=== PATIENT | male | born 1985 | race American Indian/Alaskan Native ===

== ENCOUNTER 2024-06-22 10:52 | Emergency (ER) | payer MEDICAID, SELFPAY ==
[2024-06-22 11:06] VITALS: BP 125/75; PULSE 105; RESP 20; TEMP 36.7; O2SAT 99; BMI 30.4
--- NOTE | 2024-06-22 11:19 | XR_ITS ---
Examination: CT abdomen with intravenous contrast CT pelvis with intravenous contrast 2-D coronal reconstructions 2-D sagittal reconstructions Date and time of exam:June 22, 2024 at 1748 hrs. Comparison May 11, 2024 Indications: Abdominal pain this week, large anterior abdominal wall hernia defect 17 cm on May 11, 2024 examination. CTDI: vol (mGy) 10.6 DLP: (mGycm) 605 Technique: Multiple axial sections of the abdomen and pelvis have been obtained. 64 slice high-resolution scanner used. 3 mm axial sections have been obtained, post intravenous injection 60 cc [id number] 2-D sagittal, coronal reconstructions obtained. Low dose protocols were performed. One or more of the following dose reduction techniques were used; automated exposure control, adjustment of the mA and/or KV according to patient size, use of iterative reconstruction technique. Findings: 4 mm liver cyst Again noted 17 cm upper abdominal hernia defect containing stomach colon and small bowel, no incarcerated bowel, a small portion of the liver is also in this hernia defect Cholelithiasis No pancreatic mass Appendix is not visualized No diverticulitis Urinary bladder intact No prostatomegaly Impression: Unchanged 17 cm upper abdominal wall hernia defect, containing small bowel, colon and stomach, no incarcerated bowel or bowel obstruction Cholelithiasis
--- NOTE | 2024-06-22 11:19 | PD.EDRME ---
Rapid Medical Screening Exam RME Arrival date/time: 06/22/24 10:52 39-year-old male presents emergency department complaint of infection to abdomen Chief Complaint: Abdominal Pain Time Seen by Provider: 06/22/24 11:05 Vital signs: Vital Signs Temperature 98.1 F 06/22/24 11:06 Pulse Rate 105 H 06/22/24 11:06 Respiratory Rate 20 06/22/24 11:06 Blood Pressure 125/75 06/22/24 11:06 Pulse Oximetry (%) 99 06/22/24 11:06 Oxygen Delivery Method Room Air 06/22/24 11:06
[2024-06-22 11:50] LABS: Base Excess, Venous 0 (-3-3); O2 Saturation, Venous 72 % (96-97); PCO2, Venous 28 mmHg (36-56); PO2, Venous 32 mmHg (15-58); pH, Venous 7.51 (7.33-7.66)
[2024-06-22 11:51] LABS: Lactate (Lactic Acid) 1.4 mMol/L (0.4-2.0)
[2024-06-22 12:02] LABS: Basophils # (Auto) 0.1 Thou/mm3 (0.0-0.2); Basophils % (Auto) 1 % (0-2.5); Eosinophils # (Auto) 0.4 Thou/mm3 (0.0-0.5); Eosinophils % (Auto) 3 % (0-10); Hematocrit 47.8 % (41.0-53.0); Immature Granulocytes % (Auto) 1 % (0-0); Immature Granulocytes Auto 0.07 Thou/mm3 (0.00-0.00); Lymphocytes # (Auto) 2.9 Thou/mm3 (1.0-4.8); Lymphocytes % (Auto) 21 % (10-50); Mean Corpuscular HGB Conc 33.5 g/dl (31.0-37.0); Mean Corpuscular Hemoglobin 30.1 pg (25.0-35.0); Mean Corpuscular Volume 90 fL (80-100); Monocytes # (Auto) 1.2 Thou/mm3 (0.0-0.8); Monocytes % (Auto) 9 % (0-12); Neutrophils # (Auto) 8.9 Thou/mm3 (1.8-7.7); Neutrophils % (Auto) 66 % (37-80); Nucleated Red Blood Cell % 0 /100 WBC (0); Platelet Count 272 Thou/mm3 (140-440); RDW Standard Deviation 41.5 fL (35.1-43.9); Red Blood Count 5.32 Miln/mm3 (4.50-5.90); White Blood Count 13.6 Thou/mm3 (3.8-10.6)
[2024-06-22 12:15] LABS: Sed Rate (ESR) 37 mm/hr (0-15)
[2024-06-22 12:30] LABS: Alanine Aminotransferase 43 U/L (10-49); Albumin, Serum 4.7 gm/dL (3.5-5.0); Albumin/Globulin Ratio 1.7 (1.2-2.2); Alkaline Phosphatase 106 U/L (46-116); Anion Gap 5 (7-16); Aspartate Amino Transferase 30 U/L (0-34); BUN/Creatinine Ratio 10 Ratio (12-20); Bilirubin,Total 0.5 mg/dL (0.3-1.2); Blood Urea Nitrogen 9 mg/dL (9-23); C-Reactive Protein 2.9 mg/dL (0.0-0.9); Calcium 9.9 mg/dL (8.3-10.6); Calcium (Corrected) 9.9 mg/dL (8.5-10.1); Chloride 105 mMol/L (98-107); Creatinine (Component) 0.9 mg/dL (0.6-1.3); Estimated Creatinine Clearance 132.1 mL/min (>60); Globulin 2.8 gm/dL (2.3-3.5); Glucose 102 mg/dL (74-106); Osmolality,Calculated 268 (275-295); Potassium 4.3 mMol/L (3.4-5.1); Procalcitonin 0.05 ng/ml (0.0-0.49); Sodium 135 mMol/L (136-145); Total Protein 7.5 gm/dL (5.7-8.2); eGFR > 60 See Note
[2024-06-22 12:32] LABS: Glucose Estimated Average 103 mg/dL (80-131); Hemoglobin A1C 5.2 % Hgb (4.8-6.0)
[2024-06-22 12:51] LABS: Collection Type, Urine Clean Catch
[2024-06-22 13:10] LABS: Bacteria,Urine Rare; Bilirubin,Urine Negative (Negative); Blood,Urine Negative (Negative); Clarity,Urine Clear (Clear/Hazy); Color,Urine Lt-Yellow (Lt Yel-Yel); Culture Indicated,Urine Not Indicated; Glucose, Urine Negative (Negative); Ketones,Urine Negative (Negative); Leukocyte Esterase,Urine Positive (Negative); Nitrite,Urine Negative (Negative); PH,Urine 6.5 (5.0-7.0); Protein,Urine Negative (Neg - Trace); RBC,Urine 3 /hpf (0-3); Specific Gravity,Urine 1.009 (1.001-1.035); Squamous Epithelial Cell,Urine 1 /hpf (0-5); Urobilinogen,Urine Negative mg/dL (0.0-1.0); WBC,Urine 3 /hpf (0-5)
[2024-06-22 13:11] LABS: Amphetamine/Methamp Scrn,U Negative (Negative); Barbiturate Screen,Urine Negative (Negative); Benzodiazepines Screen,Urine Negative (Negative); Benzoylecgonine Screen, Ur Negative (Negative); Fentanyl Screen,Urine Negative (Negative); Opiate Screen,Urine Negative (Negative); THC Screen,Urine Negative (Negative)
[2024-06-22 16:48] VITALS: BP 129/71; PULSE 119; RESP 20; TEMP 37.2; O2SAT 98
--- NOTE | 2024-06-22 17:17 | EDNOTE_ITS ---
ED General RME/HPI General Chief complaint: Abdominal Pain Stated complaint: LOWER ABD SWELLING Time Seen by Provider: 06/22/24 11:05 Arrival date/time: 06/22/24 10:52 CC: Abdominal pain HPI patient presents to the emergency room with mother at bedside who states the patient has a large hernia, that was supposed to be operated on in [place] however the patient declined [place] wanted it done here. At which time the mom acquiesced and return the patient to this localized area now they are complaining about constant redness and oozing underneath his large pannus. The patient denies fever chest pain or shortness of breath RME / HPI RME / HPI narrative: 06/22/24 10:52 39-year-old male presents emergency department complaint of infection to abdomen Related Data Previous Rx's ?Medication ?Instructions ?Recorded amoxicillin 250 mg-potassium 250 mg PO TID #18 tabs 07/25/21 clavulanate 125 mg tablet ascorbic acid (vitamin C) 250 mg 500 mg (2 x 250 mg) PO BID #60 tabs 07/25/21 tablet (Vitamin C) bisacodyl 5 mg tablet,delayed 10 mg (2 x 5 mg) PO QDAY PRN 07/25/21 release Constipation #30 tabs hydrocodone 7.5 mg-acetaminophen 1 tab PO Q6H PRN pain (scale score 07/25/21 325 mg tablet 7-10) #20 tabs pantoprazole 40 mg intravenous 40 mg IVP QDAY #30 ea 07/25/21 solution sennosides 8.6 mg-docusate sodium 1 tab PO HS PRN Constipation #30 07/25/21 50 mg tablet tabs zinc sulfate 50 mg zinc (220 mg) 220 mg (4.4 x 50 mg zinc (220 mg)) 07/25/21 capsule PO QDAY #30 caps meloxicam 7.5 mg tablet 7.5 mg PO QDAY #10 tabs 12/25/21 etodolac 400 mg tablet 400 mg PO BID PRN pain #30 tabs 02/25/22 tramadol 37.5 mg-acetaminophen 325 1 tab PO TID PRN pain #15 tabs 02/25/22 mg tablet (Ultracet) nystatin 100,000 unit/gram topical 1 applic topical QDAY #60 grams 06/22/24 powder Allergies Allergy/AdvReac Type Severity Reaction Status Date / Time No Known Allergies Allergy Verified 06/22/24 10:54 Review of Systems Review of Systems Narrative Review of Systems: GEN: No fever, no chills, no weight loss EYES: No discharge, no visual changes, no pain HEENT: No ear pain, no congestion, no sore throat PULM: No shortness of breath, no cough, no congestion CV: No chest pain, no dyspnea on exertion, no palpitations GI: No nausea, no vomiting, no diarrhea, + pain, no constipation : No frequency, no urgency, no dysuria MUSC/SKEL: No joint pain, no back pain SKIN: No rash PSYCH: No hallucinations, no depression HEME/LYMPH: No easy bleeding or bruising tendencies NEURO: No weakness, no headache ED Exam Narrative Physical exam: [General: Not in any acute distress Head normocephalic HEENT: Within acceptable limits Neck is supple nontender Chest equal chest rise nontender to palpation Respiratory: Clear to auscultation no wheezes crackles or rubs CV: Rate rhythm is regular no murmurs rubs or clicks Abdomen grossly distended pannus, anterior surface of which is normal in appearance other than old scarring there is no erythema or edema. Once the pannus is lifted there is excoriation to the bottom of the pannus as well as the pubis mons with serous oozing. Back: No CVA tenderness no spinous process tenderness from cervical spine thoracic and lumbar spine Skin: Multiple partial ulcerations to the under side of the pannus. Otherwise skin is intact no petechiae rash induration ulceration or crepitus Extremities: Moving all extremity against resistance cap refill less than 2 seconds neurosensory intact Neuro: Awake alert oriented x3 Glascow coma 15 no focal deficits] Course Course Course Narrative: Patient's case laboratory findings and CT discussed with Dr. Morel states the patient needs a complete abdominal wall reconstruction which is not performed at this facility. The patient is to return to the hospital in [place] where he declined initial surgery. Quality Measures none Orders Category Date Time Status CT Screening NOW Care 06/22/24 11:19 Completed Insert IV NOW Care 06/22/24 11:[address] abdomen pelvis w con Stat Exams 06/22/24 11:19 Completed A1C [Glycohemoglobin w (eAG)] Stat Lab 06/22/24 11:33 Completed Blood Culture (Lab) Stat Lab 06/22/24 11:33 Received CBC Stat Lab 06/22/24 11:33 Completed CRP [C-Reactive Protein] Stat Lab 06/22/24 11:33 Completed Comprehensive Metabolic Panel Stat Lab 06/22/24 11:33 Completed Drug Screen,Urine Stat Lab 06/22/24 12:36 Completed ESR [Sed Rate (ESR)] Stat Lab 06/22/24 11:33 Completed Lactate (Lactic Acid) Stat Lab 06/22/24 11:33 Completed Procalcitonin Stat Lab 06/22/24 11:33 Completed UA, C/S IF [Urinalysis, C/S if Indicated] Stat Lab 06/22/24 12:36 Completed VBG [Venous Blood Gas] Stat Lab 06/22/24 11:33 Completed Nystatin Pwd [Nystop Pwd] Med 06/22/24 17:23 Discontinued See Dose Instructions TOP X1 ONE Vital Signs Vital signs: Vital Signs Temperature 98.1 F 06/22/24 11:06 Pulse Rate 105 H 06/22/24 11:06 Respiratory Rate 20 06/22/24 11:06 Blood Pressure 125/75 06/22/24 11:06 Pulse Oximetry (%) 99 06/22/24 11:06 Oxygen Delivery Method Room Air 06/22/24 11:06 [facility] Patient data External records reviewed:: [facility] previous records Clinical information provided by:: patient and parent Social determinants that could affect healthcare access:: none Patient has the following chronic illnesses:: Hypertension How is presenting disease/condition affected by chronic disease/condition?: u neffected by Evaluation data The following diagnostics were reviewed and interpreted by me:: lab results and radiology exam(s) Lab and/or radiology exams considered but not ordered:: CBC shows leukocytosis of 13.6 no anemia thrombocytopenia VBG shows a pH of 7.51 pCO2 28 pO2 of 32 Lactic 1.4 CRP of 2.8 Pro-Peter 0.05 Urine is negative UDS is negative CMP shows sodium 135 potassium 3.4 chloride of 105 CO2 of 32.5 BUN of 9 creatinine of 0.9 glucose of 102. Interpretation Summary: Patient is a very large upper abdominal wall hernia that contained small bowel colon and stomach but is not incarcerated. Patient will be discharged home with nystatin cream for the yeast infection underneath this large pannus created by the hernia. Patient and mother are encouraged to return him to [facility] or [facility] for abdominal wall reconstruction. Medications Medications considered but not ordered:: None Medication administrations:: Medication Administration History Discontinued Medications Nystatin (Nystatin Pwd 15 Gm Btl) 0 gm TOP X1 ONE Stop: 06/22/24 17:24 Last Admin: 06/22/24 19:18 Dose: 1 applicatio Documented By: None Consultations Consultation(s) initiated? (list below): Yes Consultation #1 (Physician, Specialty, Details): Acute Time: 19:33 Diagnosis Differential Diagnosis ED Complaint MDM: Incarcerated hernia ventral hernia upper abdominal hernia Most likely diagnosis given after review of the tests above:: Large upper abdominal hernia, yeast infection Admission Indicated Admission indicated?: not indicated Explain why admission is indicated or not indicated:: Stable for outpatient follow-up Admission Request Was there a request for admission?: No Disposition Plan Disposition Plan: Discharge Discharge Attestation Discharge Attestation: The patient and all family members were given an opportunity to ask questions and understood the discharge instructions. Discharge instructions specifically effects, indications for sooner follow up or return to the emergency department, and the expected course of current diagnosis. Patient condition: Stable Medical Decision Making Differential Diagnosis Differential Diagnosis: Incarcerated hernia ventral hernia upper abdominal hernia Lab Data 06/22/24 11:33 06/22/24 11:33 Labs: Lab Results 06/22/24 06/22/24 Range/Units 11:33 12:36 WBC 13.6 H (3.8-10.6) Thou/mm3 RBC 5.32 (4.50-5.90) Miln/mm3 Hgb 16.0 (13.5-16.0) g/dL Hct 47.8 (41.0-53.0) % MCV 90 (80-100) fL MCH 30.1 (25.0-35.0) pg MCHC 33.5 (31.0-37.0) g/dl RDW Std Deviation 41.5 (35.1-43.9) fL Plt Count 272 (140-440) Thou/mm3 Neut % (Auto) 66 (37-80) % Lymph % (Auto) 21 (10-50) % [place] % (Auto) 9 (0-12) % Eos % (Auto) 3 (0-10) % Baso % (Auto) 1 (0-2.5) % Neut # (Auto) 8.9 H (1.8-7.7) Thou/mm3 Lymph # (Auto) 2.9 (1.0-4.8) Thou/mm3 [place] # (Auto) 1.2 H (0.0-0.8) Thou/mm3 Eos # (Auto) 0.4 (0.0-0.5) Thou/mm3 Baso # (Auto) 0.1 (0.0-0.2) Thou/mm3 Immature Gran # (Auto) 0.07 H (0.00-0.00) Thou/mm3 Absolute Nucleated RBC 0.00 (0.00-0.00) Thou/mm3 Immature Gran % 1 H (0-0) % Nucleated RBC % 0 (0) /100 WBC ESR 37 H (0-15) mm/hr VBG pH 7.51 (7.33-7.66) VBG pCO2 28 L (36-56) mmHg VBG pO2 32 (15-58) mmHg VBG O2 Sat ([place]) 72 L (96-97) % VBG Base Excess 0 (-3-3) Sodium 135 L (136-145) mMol/L Potassium 4.3 (3.4-5.1) mMol/L Chloride 105 (98-107) mMol/L Carbon Dioxide 25.0 (20.0-31.0) mMol/L Anion Gap 5 L (7-16) BUN 9 (9-23) mg/dL Creatinine 0.9 (0.6-1.3) mg/dL Estim Creat Clear Calc 132.1 (>60) mL/min eGFR > 60 (60 - ) See Note BUN/Creatinine Ratio 10 L (12-20) Ratio Glucose 102 (74-106) mg/dL Estimated Ave Glu mg/dL 103 (80-131) mg/dL Hemoglobin A1c 5.2 (4.8-6.0) % Hgb Calculated Osmolality 268 L (275-295) Lactic Acid 1.4 (0.4-2.0) mMol/L Calcium 9.9 (8.3-10.6) mg/dL Corrected Calcium 9.9 (8.5-10.1) mg/dL Total Bilirubin 0.5 (0.3-1.2) mg/dL AST 30 (0-34) U/L ALT 43 (10-49) U/L Alkaline Phosphatase 106 (46-116) U/L C-Reactive Prot, Quant 2.9 H (0.0-0.9) mg/dL Total Protein 7.5 (5.7-8.2) gm/dL Albumin 4.7 (3.5-5.0) gm/dL Globulin 2.8 (2.3-3.5) gm/dL Albumin/Globulin Ratio 1.7 (1.2-2.2) Procalcitonin 0.05 (0.0-0.49) ng/ml Ur Collection Type Clean Catch Urine Color Lt-Yellow (Lt Yel-Yel) Urine Clarity Clear (Clear/Hazy) Urine pH 6.5 (5.0-7.0) Ur Specific [place] 1.009 (1.001-1.035) Urine Protein Negative (Neg - Trace) Urine Glucose (UA) Negative (Negative) Urine Ketones Negative (Negative) Urine Blood Negative (Negative) Urine Nitrite Negative (Negative) Urine Bilirubin Negative (Negative) Urine Urobilinogen (Auto) Negative (0.0-1.0) mg/dL Ur Leukocyte Esterase Positive (Negative) Urine RBC 3 (0-3) /hpf Urine WBC 3 (0-5) /hpf Ur Squamous Epith Cells 1 (0-5) /hpf Urine Bacteria Rare (None) Ur Culture Indicated? Not Indicated Urine Opiates Screen Negative (Negative) Urine Fentanyl Screen Negative (Negative) Ur Barbiturates Screen Negative (Negative) U Amphetamin/Meth Scrn Negative (Negative) U Benzodiazepines Scrn Negative (Negative) U Cocaine Metab Screen Negative (Negative) U Marijuana (THC) Screen Negative (Negative) Discharge Plan Plan Patient Disposition: HOME (Self Care) Patient condition on transfer: Stable Prescriptions/Referrals Prescriptions/Med Rec: New nystatin 100,000 unit/gram powder 1 applic topical QDAY Qty: 60 0RF No Action pantoprazole 40 mg Recon Soln 40 mg IVP QDAY Qty: 30 1RF amoxicillin-pot clavulanate 250-125 mg Tablet 250 mg PO TID Qty: 18 0RF ascorbic acid (vitamin C) [Vitamin C] 250 mg Tablet 500 mg PO BID Qty: 60 1RF zinc sulfate 50 mg zinc (220 mg) Capsule 220 mg PO QDAY Qty: 30 1RF sennosides-docusate sodium 8.6-50 mg Tablet 1 tab PO HS PRN (Reason: Constipation) Qty: 30 1RF bisacodyl 5 mg Tablet,Delayed Release (Dr/Ec) 10 mg PO QDAY PRN (Reason: Constipation) Qty: 30 1RF hydrocodone-acetaminophen 7.5-325 mg tablet 1 tab PO Q6H MDD 4 tabs PRN (Reason: pain (scale score 7-10)) Qty: 20 0RF meloxicam 7.5 mg tablet 7.5 mg PO QDAY Qty: 10 0RF etodolac 400 mg tablet 400 mg PO BID PRN (Reason: pain) Qty: 30 0RF tramadol-acetaminophen [Ultracet] 37.5-325 mg tablet 1 tab PO TID PRN (Reason: pain) Qty: 15 0RF Referrals: Nik Rdz PA-C [Primary Care Provider] - In 1 week Problem List Clinical Impression: Abdominal hernia, Candidiasis Patient/Caregiver Discharge Instructions Other Activity Instructions:: Apply the powder underneath the large hernia once a day keep the site open clean dry and open to air. If there is a worsening of symptoms return the emergency room for reevaluation. However you need to follow-up with [facility] as stated for complete abdominal wall reconstruction secondary to your very large hernia. Education Materials: Understanding Candidemia, ED Hernia (Adult) Print Language: Czech Stand Alone Forms: Radha Award Info., Work/School Release, Patient Portal Info Letter Attestation Attestation The patient was seen by the midlevel practitioner. I, the co-signing physician, was present during the entire ER visit. While I did not physically examine the patient, I was available for consultation as needed.
[2024-06-22 18:34] VITALS: BP 128/79; PULSE 106; RESP 20; TEMP 37.1; O2SAT 96
[2024-06-22] MEDS: NYSTATIN PWD 15 GM BTL TOP (19:18)
[2024-06-22 19:22] VITALS: BP 138/81; PULSE 92; RESP 17; TEMP 37.3; O2SAT 96
== END 2024-06-22 19:47 | disposition home or self-care (01) ==
PROVIDERS: Nurse Practitioner Primary Care; Emergency Provider Emergency Medicine; PCP Physician Assistant
DX: K46.9 Unspecified abdominal hernia without obstruction or gangrene (principal); B37.2 Candidiasis of skin and nail
CPT/HCPCS: 36415; 74177; 80053; 80307; 81001; 82803; 83036; 83605; 84145; 85025; 85652; 86140; 87040; 99285; A4649; Q9967; A9270

== ENCOUNTER 2025-05-27 17:25 | Emergency (ER) | payer MEDICAID, SELFPAY ==
[2025-05-27 17:44] VITALS: BP 115/77; PULSE 94; RESP 18; TEMP 37.2; O2SAT 95
--- NOTE | 2025-05-27 17:57 | XR_ITS ---
Examination: CT abdomen and pelvis without contrast. Coronal 3-D reconstructions. Sagittal 2-D reconstructions. Date and time of exam: May 27, 2025, 1805 hours, comparison June 22, 2024 INDICATIONS: Generalized abdominal pain today CTDI: vol (mGy): 11 DLP: (mGycm): 734 Technique: Axial images of the abdomen have been obtained, 3 mm slice thickness Intravenous contrast material has not been administered. Low dose protocols were performed. One or more of the following dose reduction techniques were used; automated exposure control, adjustment of the mA and/or KV according to patient size, use of iterative reconstruction technique. Findings: Gastric mucosa is thickened No visualized liver or splenic lesion Again noted large 18 cm upper abdominal wall hernia defect which is containing colon and stomach and small bowel Gallbladder is contracted No pancreatic mass No renal or ureteral calculi, no hydronephrosis Aorta is not enlarged No pericecal inflammatory change No diverticulitis No bladder mass No prostatomegaly Mild osteopenia Old deformity right femoral head with moderate right hip osteoarthritis IMPRESSION: Gastritis pattern Again noted large upper abdominal wall hernia defect containing colon, stomach and small bowel, no incarcerated bowel No obstruction No nonspecific colitis or diverticulitis
--- NOTE | 2025-05-27 17:57 | PD.EDRME ---
Rapid Medical Screening Exam RME Arrival date/time: 05/27/25 17:25 40-year-old male presents to the emergency room today for complaints of hernia patient has a chronic hernia patient was scheduled of surgery multiple times per the mother the patient has not gone to his procedures Chief Complaint: Abdominal Pain Time Seen by Provider: 05/27/25 18:36 Vital signs: Vital Signs Temperature 99.0 F 05/27/25 17:44 Pulse Rate 94 05/27/25 17:44 Respiratory Rate 18 05/27/25 17:44 Blood Pressure 115/77 05/27/25 17:44 Pulse Oximetry (%) 95 05/27/25 17:44 Oxygen Delivery Method Room Air 05/27/25 17:44
[2025-05-27 18:24] LABS: Basophils # (Auto) 0.1 Thou/mm3 (0.0-0.2); Basophils % (Auto) 1 % (0-2.5); Eosinophils # (Auto) 0.6 Thou/mm3 (0.0-0.5); Eosinophils % (Auto) 4 % (0-10); Hematocrit 52.0 % (41.0-53.0); Hemoglobin 17.1 g/dL (13.5-16.0); Immature Granulocytes Auto 0.10 Thou/mm3 (0.00-0.00); Lymphocytes # (Auto) 4.4 Thou/mm3 (1.0-4.8); Lymphocytes % (Auto) 26 % (10-50); Mean Corpuscular HGB Conc 32.9 g/dl (31.0-37.0); Mean Corpuscular Hemoglobin 29.6 pg (25.0-35.0); Mean Corpuscular Volume 90 fL (80-100); Monocytes # (Auto) 0.9 Thou/mm3 (0.0-0.8); Monocytes % (Auto) 5 % (0-12); Neutrophils # (Auto) 11.1 Thou/mm3 (1.8-7.7); Neutrophils % (Auto) 65 % (37-80); Nucleated Red Blood Cell # 0.00 Thou/mm3 (0.00-0.00); Nucleated Red Blood Cell % 0 /100 WBC (0); Platelet Count 257 Thou/mm3 (140-440); RDW Standard Deviation 44.9 fL (35.1-43.9); Red Blood Count 5.77 Miln/mm3 (4.50-5.90); White Blood Count 17.2 Thou/mm3 (3.8-10.6)
[2025-05-27 18:39] LABS: Collection Type, Urine Clean Catch; Squamous Epithelial Cell,Urine 0 /hpf (0-5)
[2025-05-27 18:41] LABS: Alanine Aminotransferase 46 U/L (10-49); Albumin, Serum 4.5 gm/dL (3.5-5.0); Albumin/Globulin Ratio 1.9 (1.2-2.2); Alkaline Phosphatase 92 U/L (46-116); Anion Gap 9 (7-16); Aspartate Amino Transferase 22 U/L (0-34); BUN/Creatinine Ratio 16 Ratio (12-20); Bilirubin,Total 0.2 mg/dL (0.3-1.2); Blood Urea Nitrogen 18 mg/dL (9-23); Calcium 9.9 mg/dL (8.3-10.6); Calcium (Corrected) 9.9 mg/dL (8.5-10.1); Carbon Dioxide 26.0 mMol/L (20.0-31.0); Chloride 108 mMol/L (98-107); Creatinine (Component) 1.1 mg/dL (0.6-1.3); Globulin 2.4 gm/dL (2.3-3.5); Glucose 98 mg/dL (74-106); Lipase 48 U/L (12-53); Osmolality,Calculated 286 (275-295); Potassium 4.1 mMol/L (3.4-5.1); Sodium 143 mMol/L (136-145); Total Protein 6.9 gm/dL (5.7-8.2); eGFR > 60 See Note
--- NOTE | 2025-05-27 18:53 | PD.EDABDPN ---
ED Abdominal Pain RME/HPI General Chief Complaint: Abdominal Pain Stated complaint: Hernia X 3 years, nausea Time seen by provider: 05/27/25 18:36 Arrival date/time: 05/27/25 17:25 RME / HPI RME / HPI narrative: 05/27/25 17:25 40-year-old male presents to the emergency room today for complaints of hernia patient has a chronic hernia patient was scheduled of surgery multiple times per the mother the patient has not gone to his procedures See [facility] for Dr. Harris's HPI Documentation. Related Data Previous Rx's ?Medication ?Instructions ?Recorded amoxicillin 250 mg-potassium 250 mg PO TID #18 tabs 07/25/21 clavulanate 125 mg tablet ascorbic acid (vitamin C) 250 mg 500 mg (2 x 250 mg) PO BID #60 tabs 07/25/21 tablet (Vitamin C) bisacodyl 5 mg tablet,delayed 10 mg (2 x 5 mg) PO QDAY PRN 07/25/21 release Constipation #30 tabs hydrocodone 7.5 mg-acetaminophen 1 tab PO Q6H PRN pain (scale score 07/25/21 325 mg tablet 7-10) #20 tabs pantoprazole 40 mg intravenous 40 mg IVP QDAY #30 ea 07/25/21 solution sennosides 8.6 mg-docusate sodium 1 tab PO HS PRN Constipation #30 07/25/21 50 mg tablet tabs zinc sulfate 50 mg zinc (220 mg) 220 mg (4.4 x 50 mg zinc (220 mg)) 07/25/21 capsule PO QDAY #30 caps meloxicam 7.5 mg tablet 7.5 mg PO QDAY #10 tabs 12/25/21 etodolac 400 mg tablet 400 mg PO BID PRN pain #30 tabs 02/25/22 tramadol 37.5 mg-acetaminophen 325 1 tab PO TID PRN pain #15 tabs 02/25/22 mg tablet (Ultracet) nystatin 100,000 unit/gram topical 1 applic topical QDAY #60 grams 06/22/24 powder acetaminophen 300 mg-codeine 30 mg 2 tab PO Q8H PRN pain #20 tabs 05/27/25 tablet famotidine 40 mg tablet 40 mg PO .bedtime #30 tabs 05/27/25 omeprazole 40 mg capsule,delayed 40 mg PO QDAY #30 caps 05/27/25 release ondansetron 4 mg disintegrating 4 mg PO TID PRN nausea and 05/27/25 tablet vomiting 30 days #10 tabs Allergies Allergy/AdvReac Type Severity Reaction Status Date / Time No Known Allergies Allergy Verified 05/27/25 17:29 Review of Systems Review of Systems Systems Reviewed: All systems reviewed, normal except as documented Past Medical History Past Medical History GASTROINTESTINAL: Positive Hiatal Hernia and Obesity OTHER HISTORY: Positive Blood Transfusions Surgical History SURGICAL: Positive Abdominal Surgery Social History SMOKING STATUS: Current every day smoker SECOND HAND EXPOSURE: Yes SUBSTANCE USE: marijuana ED Exam Narrative Physical exam: See [facility] for Dr. Harris's Physical Exam Documentation. Course Quality Measures none Orders Category Date Time Status CT abdomen pelvis wo con Stat Exams 05/27/25 17:57 Completed CBC Stat Lab 05/27/25 18:18 Completed Comprehensive Metabolic Panel Stat Lab 05/27/25 18:18 Completed Drug Screen,Urine Stat Lab 05/27/25 18:28 Completed Lipase Stat Lab 05/27/25 18:18 Completed UA, C/S IF [Urinalysis, C/S if Indicated] Stat Lab 05/27/25 18:28 Completed ACETAMINOPHEN w/COD 300-30 [Tylenol w/Cod #3] Med 05/27/25 18:56 Discontinued 2 tab PO X1 ONE Famotidine [Pepcid] Med 05/27/25 18:56 Discontinued 40 mg PO X1 ONE Ondansetron Odt [Zofran Odt] Med 05/27/25 18:56 Discontinued 4 mg PO X1 ONE Vital Signs Vital signs: Vital Signs Temperature 99.0 F 05/27/25 17:44 Pulse Rate 94 05/27/25 17:44 Respiratory Rate 18 05/27/25 17:44 Blood Pressure 115/77 05/27/25 17:44 Pulse Oximetry (%) 95 05/27/25 17:44 Oxygen Delivery Method Room Air 05/27/25 17:44 Abdominal Pain [facility] Narrative [facility] Narrative:: This section includes all my notes and documentations, including HPI, PE, and ED course. Trevor Harris MD HPI: 40 y/o male with known history of abdominal wall hernia for several years here with increased abdominal pain for several days. Has trouble localizing the pain. Has trouble describing the quality and quantity of the pain. Has trouble describing the exacerbating factors and relieving factors. No vomiting, occasional nausea. No fever. No other complaints. ROS: All negative except as documented in HPI. Physical Exam: General: Alert and oriented. No acute distress when remaining still. Eyes: Conjunctivae and lids clear. ENT: No nasal congestion. Neck: Supple. Heart: RRR. Lungs: No respiratory distress. Good air movement. No rhonchi, wheezing, rales. Abdomen: Soft and nontender. Normal bowel sounds. No distension. No rebound or guarding. Back: No CVA tenderness. Skin: Warm and dry. Neuro: Alert and oriented X 3. I reviewed all diagnostic test results: My review of the CT report is: Gastritis and large upper abdominal wall hernia defect containing colon, stomach and small bowel, no incarcerated bowel. Blood tests and urine tests unremarkable At this point, diagnoses include: Gastritis Abdominal Wall Hernia, not incarcerated Treatment here included: Two Tylenol #3 Pepcid 40 mg p.o. Zofran ODT 4 mg He felt much better. Recommended more outpatient care. Based on my best medical judgment, made decision no further evaluation or treatment indicated at this time. Patient understands and agrees to the discharge instructions customized and printed, see below. Discharge instructions from Dr. Harris: ?After evaluation, your diagnoses include gastritis and abdominal hernia. See attached handouts. Hernia is not incarcerated (not twisted and trapped outside the abdomen) so emergent surgery is not needed. ?To help heal the ulcer, take Omeprazole 40 mg every morning and Famotidine 40 mg at bedtime for a month. ?Zofran for nausea/vomiting.? Clear liquid diet for 24 hours.? Then slowly advance diet as tolerated. Tylenol with codeine for severe pain. ?Avoid food and beverages that can trigger and worsen ulcers.? See attached handout. ?See a private doctor on 05/30/2025 for recheck and further care. To make sure there is no serious intra-abdominal condition, ask for help with more investigation not available here in the ER.? Such as EGD or scoping the stomach, colonoscopy or scoping the colon, and referral to see customer leader. Ask to review all test results and official radiology reports, to make sure you receive all necessary follow-ups and monitoring. Ask for help seeing a surgeon to perform surgery of your abdominal hernia, before incarceration. ?Seek immediate medical care with worsening or with any concerns. Trevor Harris MD Patient data External records reviewed:: [facility] previous records (Reviewed prior ED records from 06/22/24. Patient was seen for Abdominal hernia.) Clinical information provided by:: patient Social determinants that could affect healthcare access:: substance use (Marijuana) Patient has the following chronic illnesses:: Hiatal Hernia and Obesity How is presenting disease/condition affected by chronic disease/condition?: exacerbated by Evaluation data The following diagnostics were reviewed and interpreted by me:: lab results and radiology exam(s) Lab and/or radiology exams considered but not ordered:: None Interpretation Summary: I reviewed all diagnostic test results: My review of the CT report is: Gastritis and large upper abdominal wall hernia defect containing colon, stomach and small bowel, no incarcerated bowel. Blood tests and urine tests unremarkable Medications / Prescriptions Medications or Prescriptions considered but not ordered:: None Medication administrations:: Medication Administration History Discontinued Medications Acetaminophen/Codeine Phosphate (Acetaminophen W/Cod 300-30 Tablet) 2 tab PO X1 ONE Stop: 05/27/25 18:57 Last Admin: 05/27/25 19:09 Dose: 2 tab Documented By: OA Famotidine (Famotidine 20 Mg Tablet) 40 mg PO X1 ONE Stop: 05/27/25 18:57 Last Admin: 05/27/25 19:10 Dose: 40 mg Documented By: OA Ondansetron HCl (Ondansetron Odt 4 Mg Tabrap) 4 mg PO X1 ONE; Protocol Stop: 05/27/25 18:57 Last Admin: 05/27/25 19:10 Dose: 4 mg Documented By: OA Treatment here included: Two Tylenol #3 Pepcid 40 mg p.o. Zofran ODT 4 mg Consultations Consultation(s) initiated? (list below): No Diagnosis Differential diagnosis abdominal pain: abdominal pain, acute appendicitis, calculus of kidney, constipation, diverticulitis, gastroenteritis, small bowel obstruction and other (Hiatal hernia) Most likely diagnosis given after review of the tests above:: Gastritis Abdominal Wall Hernia without incarceration Admission Indicated Admission indicated?: not indicated Explain why admission is indicated or not indicated:: With significant improvement and no condition needing emergent intervention, there was no indication for admission. Admission Request Was there a request for admission?: No Disposition Plan Disposition Plan: Discharge Discharge Attestation Discharge Attestation: The patient and all family members were given an opportunity to ask questions and understood the discharge instructions. Discharge instructions specifically effects, indications for sooner follow up or return to the emergency department, and the expected course of current diagnosis. Patient condition: Stable Discharge Plan Plan Patient Disposition: HOME (Self Care) Prescriptions/Referrals Prescriptions/Med Rec: New famotidine 40 mg tablet 40 mg PO .bedtime Qty: 30 0RF acetaminophen-codeine 300-30 mg tablet 2 tab PO Q8H MDD 6 PRN (Reason: pain) Qty: 20 0RF omeprazole 40 mg capsule,delayed release(DR/EC) 40 mg PO QDAY Qty: 30 0RF ondansetron 4 mg tablet,disintegrating 4 mg PO TID PRN (Reason: nausea and vomiting) 30 Days Qty: 10 0RF No Action pantoprazole 40 mg Recon Soln 40 mg IVP QDAY Qty: 30 1RF amoxicillin-pot clavulanate 250-125 mg Tablet 250 mg PO TID Qty: 18 0RF ascorbic acid (vitamin C) [Vitamin C] 250 mg Tablet 500 mg PO BID Qty: 60 1RF zinc sulfate 50 mg zinc (220 mg) Capsule 220 mg PO QDAY Qty: 30 1RF sennosides-docusate sodium 8.6-50 mg Tablet 1 tab PO HS PRN (Reason: Constipation) Qty: 30 1RF bisacodyl 5 mg Tablet,Delayed Release (Dr/Ec) 10 mg PO QDAY PRN (Reason: Constipation) Qty: 30 1RF hydrocodone-acetaminophen 7.5-325 mg tablet 1 tab PO Q6H MDD 4 tabs PRN (Reason: pain (scale score 7-10)) Qty: 20 0RF meloxicam 7.5 mg tablet 7.5 mg PO QDAY Qty: 10 0RF etodolac 400 mg tablet 400 mg PO BID PRN (Reason: pain) Qty: 30 0RF tramadol-acetaminophen [Ultracet] 37.5-325 mg tablet 1 tab PO TID PRN (Reason: pain) Qty: 15 0RF nystatin 100,000 unit/gram powder 1 applic topical QDAY Qty: 60 0RF Problem List Clinical Impression: Gastritis, Abdominal wall hernia Patient/Caregiver Discharge Instructions Discharge Activity: activity as tolerated Education Materials: ED Gastritis (Adult), ED Hernia (Adult) Additional Instructions: Discharge instructions from Dr. Harris: ?After evaluation, your diagnoses include gastritis and abdominal hernia. See attached handouts. Hernia is not incarcerated (not twisted and trapped outside the abdomen) so emergent surgery is not needed. ?To help heal the ulcer, take Omeprazole 40 mg every morning and Famotidine 40 mg at bedtime for a month. ?Zofran for nausea/vomiting.? Clear liquid diet for 24 hours.? Then slowly advance diet as tolerated. Tylenol with codeine for severe pain. ?Avoid food and beverages that can trigger and worsen ulcers.? See attached handout. ?See a private doctor on 05/30/2025 for recheck and further care. To make sure there is no serious intra-abdominal condition, ask for help with more investigation not available here in the ER.? Such as EGD or scoping the stomach, colonoscopy or scoping the colon, and referral to see customer leader. Ask to review all test results and official radiology reports, to make sure you receive all necessary follow-ups and monitoring. Ask for help seeing a surgeon to perform surgery of your abdominal hernia, before incarceration. ?Seek immediate medical care with worsening or with any concerns. Print Language: Yi Stand Alone Forms: Radha Award Info., Patient Portal Info Letter
[2025-05-27 18:59] LABS: Bilirubin,Urine Negative (Negative); Blood,Urine Negative (Negative); Clarity,Urine Clear (Clear/Hazy); Color,Urine Yellow (Lt Yel-Yel); Culture Indicated,Urine Not Indicated; Glucose, Urine Negative (Negative); Ketones,Urine Negative (Negative); Leukocyte Esterase,Urine Negative (Negative); Nitrite,Urine Negative (Negative); PH,Urine 6.0 (5.0-7.0); Protein,Urine Negative (Neg - Trace); RBC,Urine 2 /hpf (0-3); Specific Gravity,Urine 1.021 (1.001-1.035); Urobilinogen,Urine 2.0 mg/dL (0.0-1.0); WBC,Urine 1 /hpf (0-5)
[2025-05-27] MEDS: ACETAMINOPHEN w/COD 300-30 TABLET 2 TAB PO (19:09)
[2025-05-27] MEDS: ONDANSETRON ODT 4 MG TABRAP PO (19:10)
[2025-05-27] MEDS: FAMOTIDINE 20 MG TABLET 40 MG PO (19:10)
[2025-05-27 19:16] LABS: Amphetamine/Methamp Scrn,U Negative (Negative); Barbiturate Screen,Urine Negative (Negative); Benzodiazepines Screen,Urine Negative (Negative); Benzoylecgonine Screen, Ur Negative (Negative); Fentanyl Screen,Urine Negative (Negative); Opiate Screen,Urine Negative (Negative); THC Screen,Urine Negative (Negative)
[2025-05-27 19:19] VITALS: RESP 18
== END 2025-05-27 19:19 | disposition home or self-care (01) ==
LOC: SERX 19:23
PROVIDERS: Nurse Practitioner Primary Care; Emergency Provider Emergency Medicine; PCP Physician Assistant
DX: K29.70 Gastritis, unspecified, without bleeding (principal); K43.9 Ventral hernia without obstruction or gangrene; K59.00 Constipation, unspecified
CPT/HCPCS: 36415; 74176; 80053; 80307; 81001; 83690; 85025; 99283; Q0162; A9270

== ENCOUNTER → 2025-07-22 | Outpatient (CLI) | payer MEDICAID, SELFPAY | END | disposition home or self-care (01) | PROVIDERS: PCP Physician Assistant; Referring Provider Physician Assistant; Visit Provider Surgery | DX: S31.109A Unspecified open wound of abdominal wall, unspecified quadrant without penetration into peritoneal cavity, initial encounter (principal); X58.XXXA Exposure to other specified factors, initial encounter; L98.432 Non-pressure chronic ulcer of abdomen with fat layer exposed; K45.8 Other specified abdominal hernia without obstruction or gangrene; Z72.0 Tobacco use; Z98.890 Other specified postprocedural states | CPT/HCPCS: 97597; 99213; A9270; G0463 ==

== ENCOUNTER → 2025-07-29 | Outpatient (CLI) | payer MEDICAID, SELFPAY | END | disposition home or self-care (01) | LOC: SWHD 14:14 | PROVIDERS: PCP Physician Assistant; Referring Provider Physician Assistant; Visit Provider Surgery | DX: S31.109A Unspecified open wound of abdominal wall, unspecified quadrant without penetration into peritoneal cavity, initial encounter (principal); X58.XXXA Exposure to other specified factors, initial encounter; Z72.0 Tobacco use | CPT/HCPCS: 99212; A9270; G0463 ==